=== PATIENT | male | born 2000 | race African-American/Black ===

== ENCOUNTER 2018-10-13 13:20 | Emergency (ER) | payer SELFPAY ==
[2018-10-13 13:56] LABS: Hemoglobin 14.7 g/dL (14.0-18.0); Mean Corpuscular HGB CONC 32.2 g/dL (32.0-36.0); Mean Corpuscular Hemoglobin 23.1 pg (25.0-35.0); Mean Corpuscular Volume 71.9 fL (78.0-98.0); RBC Distribution Width 12.5 % (11.5-14.5); Red Blood Cell (RBC) Count 6.36 mill/uL (4.00-5.20)
[2018-10-13 14:19] LABS: ALT (SGPT) 67 U/L (8-55); AST (SGOT) 33 U/L (5-34); Albumin 4.8 g/dL (3.5-5.0); Alkaline Phosphatase 94 U/L (Less than 750); Anion Gap 15 mmol/L (10-20); BUN (Urea Nitrogen) 11 mg/dL (8.9-20.6); Bilirubin, Total 0.9 mg/dL (0.2-1.2); Calc. Creatinine Clearance 0 mL/min (70-130); Calcium 10.1 mg/dL (7.8-10.44); Carbon Dioxide 22 mmol/L (22-29); Chloride 103 mmol/L (98-107); Estimated GFR-MDRD 66; Globulin 2.4 g/dL (2.4-3.5); Glucose 308 mg/dL (70-105); Protein, Total 7.2 g/dL (6.0-8.3); Sodium 136 mmol/L (136-145)
[2018-10-13 14:22] LABS: Large Platelets SLIGHT; Lymphocytes 57 % (28-48); MDiff Complete? YES; Monocytes 2 % (0-4); Neutrophil 41 % (31-61); Platelet Count 135 thou/uL (130-400); Platelet Morphology Comment Appears Adequate
== END 2018-10-13 16:30 | disposition home or self-care (01) ==
LOC: ERS 13:20
DX: R73.9 Hyperglycemia, unspecified (principal); I10 Essential (primary) hypertension
CPT/HCPCS: 36416; 80053; 82010; 83605; 83735; 85025; 96360